=== PATIENT | female | born 1980 | race Caucasian/White ===

== ENCOUNTER 2024-06-03 19:17 | Emergency (ER) | payer BC ==
[2024-06-03 19:32] VITALS: BP 129/83; PULSE 67; RESP 16; TEMP 98.6; BMI 30.6
[2024-06-03 19:49] LABS: URINE APPEARANCE CLEAR; URINE BILIRUBIN NEGATIVE (NEGATIVE); URINE COLOR YELLOW; URINE GLUCOSE (UA) NEGATIVE (NEGATIVE); URINE KETONE NEGATIVE (NEGATIVE); URINE LEUK ESTERASE NEGATIVE (NEGATIVE); URINE NITRITE NEGATIVE (NEGATIVE); URINE PROTEIN NEGATIVE (NEGATIVE); URINE UROBILINOGEN 0.2 mg/dL (0.2-1.0)
[2024-06-03 20:06] LABS: EPI CELLS 13.7 /uL (0-25.1); HYALINE CASTS 0 /uL (0-3.1); URINE BACTERIA 396.1 /uL (0-1359); URINE RBC 15 /uL (0-23.9); URINE WBC 0 /uL (0-25.8)
[2024-06-03 21:10] LABS: BASO % 0.7 % (0-2.0); EOS % 1.7 % (0-4.5); LYMPH % 28.3 % (8-40); MCHC 34.1 g/dl (32.0-36.0); MEAN CELL VOLUME 96.5 fl (80-96); MEAN PLT VOLUME 7.7 fl (7.5-11.1); MONO % 7.1 % (3.8-10.2); NEUT % 62.2 % (42.8-82.8); PLATELET COUNT 275 10^3/uL (134-434); RBC 4.25 M/mm3 (3.60-5.2); WHITE BLOOD COUNT 8.5 K/mm3 (4.0-10.0)
[2024-06-03 21:36] LABS: POTASSIUM 4.2 mmol/L (3.5-5.1)
[2024-06-03 21:38] LABS: ALBUMIN 3.7 g/dl (3.4-5.0); BLOOD UREA NITROGEN 11.3 mg/dL (7-18)
[2024-06-03 21:41] LABS: CREATININE 0.7 mg/dL (0.55-1.3)
[2024-06-03 21:43] LABS: TOT PROT 6.8 g/dl (6.4-8.2)
[2024-06-03 21:54] LABS: BILIRUBIN,TOTAL 0.3 mg/dL (0.2-1)
== END 2024-06-03 23:14 | disposition home or self-care (01) ==
LOC: JER 19:17
DX: O20.9 Hemorrhage in early pregnancy, unspecified (principal); Z3A.01 Less than 8 weeks gestation of pregnancy
CPT/HCPCS: 36415; 76815; 76830-TC; 80053; 81003; 84702; 84703; 85025; 86850; 86900; 86901; 87086; 99284-25